=== PATIENT | male | born 1965 | race Caucasian/White ===

== ENCOUNTER 2017-03-13 07:17 | Outpatient (CLI) | payer BC ==
--- NOTE | 2017-03-13 11:58 | MRI ---
MRI LEFT KNEE WITHOUT CONTRAST: HISTORY: M25.562, left knee pain. COMPARISON: None. FINDINGS: Medial Meniscus: Mild degenerative signal within the body and posterior horn medial meniscus with a superior articular surface tear of the posterior reattachment. Lateral Meniscus: There is a complex vertical and horizontal oblique tear of the body and posterior horn lateral menisc us with tear extending to the reattachment. There is loss of normal hoop stress with lateral menisca l femoral extrusion. Extensor Mechanism: Quadriceps tendon, patella, and patellar tendon are all intact. Moderate proximal patellar tendinosis. Soft Tissues: There is a 3.6 x 2.7 x 7 cm popliteal cyst. Small joint effusion. Cartilage: Patellofemoral compartment: There is a 50% thickness cartilage fissure lateral patellar facet. Mild trochlear dysplasia. Medial Compartment: There are a few 50-75% thickness cartilage fissures of the weightbearing surface of the medial femora l condyle. Lateral compartment: Multifocal full-thickness cartilage fissures of the weight bearing surface lateral femoral condyle an d tibial plateaus with subchondral edema. There is near-complete cartilage loss of the posterior love ghtbearing surface of the lateral femoral condyle. IMPRESSION: 1. 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 There is subsequent osteophyte formation and multifocal grade IV chondromalacia. 2. Superior articular surface tear of the posterior root attachment of the medial meniscus without l oss of normal hoop stress. There is moderate degenerative signal in the body and posterior horn. 3. Large non-leaking popliteal cyst size as above. 4. Mild to moderate proximal patellar tendinosis. POS: [facility]
== END 2017-03-13 07:18 | disposition home or self-care (01) ==
LOC: SCSMRI 07:17
PROVIDERS: ATTEND Orthopaedic Surgery
DX: M25.562 Pain in left knee (principal); S83.282A Other tear of lateral meniscus, current injury, left knee, initial encounter; S83.242A Other tear of medial meniscus, current injury, left knee, initial encounter; M94.262 Chondromalacia, left knee; M71.22 Synovial cyst of popliteal space [Baker], left knee; M76.52 Patellar tendinitis, left knee; Z00.00 Encounter for general adult medical examination without abnormal findings
CPT/HCPCS: 36415; 80048; 81001; 85025

== ENCOUNTER 2018-03-11 07:07 | Outpatient (CLI) | payer BC ==
[2018-03-11 07:22] LABS: #Eosinphils 0.2 thou/uL (0.0-0.7); #Lymphocytes 1.6 thou/uL (1.20-3.40); #Monocytes 0.5 thou/uL (0.11-0.59); #Neutrophils 2.6 thou/uL (1.40-6.50); %Basophils 0.8 % (0.0-1.0); %Eosinophils 4.1 % (0.0-10.0); %Lymphocytes 32.7 % (21.0-51.0); %Monocytes 10.3 % (0.0-10.0); %Neutrophils 52.2 % (42.0-75.0); Hemoglobin 15.7 g/dL (14.0-18.0); Mean Corpuscular HGB CONC 34.8 g/dL (32.0-36.0); Mean Corpuscular Hemoglobin 31.9 pg (27.0-31.0); Mean Corpuscular Volume 91.9 fL (78.0-98.0); Mean Platelet Volume 7.5 fL (7.4-10.4); Platelet Count 148 thou/uL (130-400); RBC Distribution Width 10.9 % (11.5-14.5); White Blood Cell (WBC) Count 4.9 thou/uL (4.8-10.8)
[2018-03-11 07:28] LABS: Bilirubin Negative (Negative); Blood, Urine Negative (Negative); Clarity Slightly Cloudy (Clear); Glucose, Urine (Dipstick) Negative (Negative); Leukocyte Negative (Negative); Nitrite Negative (Negative); Protein, Urine (Dipstick) Negative (Neg-Trace); Urobilinogen 0.2 mg/dL (0.2-1.0)
[2018-03-11 07:33] LABS: Chloride 107 mmol/L (98-107); Potassium 4.4 mmol/L (3.5-5.1); Sodium 142 mmol/L (136-145); Triglycerides 78 mg/dL (Less than 150)
[2018-03-11 07:35] LABS: Bacteria/HPF None Seen HPF (None Seen); Hyaline Casts/LPF NONE SEEN LPF (0-3 Hyaline); RBC/HPF 0-3 HPF (0-3); Squamous Epithelial None Seen HPF (0-3); WBC/HPF None Seen HPF (0-3)
[2018-03-11 10:08] LABS: ALT (SGPT) 34 U/L (8-55); AST (SGOT) 23 U/L (5-34); Albumin 4.1 g/dL (3.5-5.0); Alkaline Phosphatase 79 U/L (40-150); Anion Gap 10 mmol/L (10-20); BUN (Urea Nitrogen) 18 mg/dL (8.4-25.7); Bilirubin, Total 0.9 mg/dL (0.2-1.2); Calc. Creatinine Clearance 0 mL/min (70-130); Calcium 9.3 mg/dL (7.8-10.44); Carbon Dioxide 29 mmol/L (22-29); Cholesterol 129 mg/dl (< 200 Desired); Estimated GFR-MDRD 90; Glucose 104 mg/dL (70-105); HDL Cholesterol 32 mg/dL (>60 Neg Risk); LDL Cholesterol, Calculated 81 mg/dL; Protein, Total 7.1 g/dL (6.0-8.3)
== END 2018-03-11 07:08 | disposition home or self-care (01) ==
LOC: SCSLAB 07:07
PROVIDERS: ATTEND Family Medicine
DX: Z00.00 Encounter for general adult medical examination without abnormal findings (principal); E78.5 Hyperlipidemia, unspecified
CPT/HCPCS: 36415; 80053; 80061; 81001; 85025

== ENCOUNTER 2018-03-26 07:49 | Emergency (ER) | payer BC ==
[2018-03-26] MEDS ORDERED: Famotidine/PF 20 mg/2ml Vial ONE (08:13)
[2018-03-26 08:23] LABS: #Eosinphils 0.2 thou/uL (0.0-0.7); #Lymphocytes 1.4 thou/uL (1.20-3.40); #Monocytes 0.4 thou/uL (0.11-0.59); #Neutrophils 2.3 thou/uL (1.40-6.50); %Basophils 1.1 % (0.0-1.0); %Eosinophils 4.6 % (0.0-10.0); %Lymphocytes 31.8 % (21.0-51.0); %Monocytes 8.4 % (0.0-10.0); %Neutrophils 54.1 % (42.0-75.0); Hemoglobin 16.6 g/dL (14.0-18.0); Mean Corpuscular HGB CONC 35.8 g/dL (32.0-36.0); Mean Corpuscular Volume 92.2 fL (78.0-98.0); Mean Platelet Volume 7.6 fL (7.4-10.4); Platelet Count 178 thou/uL (130-400); RBC Distribution Width 11.2 % (11.5-14.5); Red Blood Cell (RBC) Count 5.01 mill/uL (4.70-6.10); White Blood Cell (WBC) Count 4.3 thou/uL (4.8-10.8)
[2018-03-26 08:35] LABS: ALT (SGPT) 42 U/L (8-55); AST (SGOT) 33 U/L (5-34); Albumin 4.3 g/dL (3.5-5.0); Alkaline Phosphatase 78 U/L (40-150); Anion Gap 13 mmol/L (10-20); BUN (Urea Nitrogen) 22 mg/dL (8.4-25.7); Bilirubin, Total 0.8 mg/dL (0.2-1.2); Calc. Creatinine Clearance 0 mL/min (70-130); Calcium 9.5 mg/dL (7.8-10.44); Carbon Dioxide 27 mmol/L (22-29); Chloride 106 mmol/L (98-107); Estimated GFR-MDRD Greater than 90; Glucose 108 mg/dL (70-105); Potassium 3.8 mmol/L (3.5-5.1); Protein, Total 7.3 g/dL (6.0-8.3); Sodium 142 mmol/L (136-145)
--- NOTE | 2018-03-26 08:54 | RAD ---
CHEST 2 VIEWS: Date: 03/26/18 HISTORY: Chest pain. FINDINGS: No comparison. Cardiac silhouette and pulmonary vasculature are unremarkable. Mediastinum is midline. No confluent a ir space consolidation, pneumothorax, or pleural fluid. IMPRESSION: No active cardiopulmonary abnormalities are demonstrated. POS: [facility]
== END 2018-03-26 11:16 | disposition home or self-care (01) ==
LOC: SCSER 07:49
DX: R07.89 Other chest pain (principal); I10 Essential (primary) hypertension
CPT/HCPCS: 71046; 80053; 84484; 85025; 93005; 94760; 96374; S0028

== ENCOUNTER 2019-08-16 09:52 | Outpatient (CLI) | payer BC, OTHER ==
[2019-08-16 13:31] LABS: Hemoglobin 16.3 g/dL (14.0-18.0); Mean Corpuscular HGB CONC 34.6 g/dL (32.0-36.0); Mean Corpuscular Hemoglobin 33.9 pg (27.0-31.0); Mean Corpuscular Volume 98.1 fL (78.0-98.0); Mean Platelet Volume 7.6 fL (7.4-10.4); Platelet Count 175 thou/uL (130-400); White Blood Cell (WBC) Count 4.8 thou/uL (4.8-10.8)
[2019-08-16 13:35] LABS: Bacteria/HPF None Seen HPF (None Seen); Bilirubin Negative (Negative); Blood, Urine Negative (Negative); Clarity Clear (Clear); Glucose, Urine (Dipstick) Normal (Negative); Leukocyte Negative Leu/uL (Negative); Nitrite Negative (Negative); Protein, Urine (Dipstick) Negative (Neg-Trace); RBC/HPF 0-3 HPF (0-3); Squamous Epithelial None Seen HPF (0-3); Urobilinogen Normal mg/dL (Less than 2); WBC/HPF None Seen HPF (0-3)
[2019-08-16 14:53] LABS: INR-International Normal Ratio 0.9; PTT 29.6 sec (22.9-36.1); Prothrombin Time 12.3 sec (12.0-14.7)
[2019-08-16 15:39] LABS: Anion Gap 15 mmol/L (10-20); BUN (Urea Nitrogen) 18 mg/dL (8.4-25.7); Calc. Creatinine Clearance 0 mL/min (70-130); Calcium 9.2 mg/dL (7.8-10.44); Carbon Dioxide 23 mmol/L (22-29); Chloride 108 mmol/L (98-107); Estimated GFR-MDRD 89; Glucose 97 mg/dL (70-105); Potassium 4.2 mmol/L (3.5-5.1); Sodium 142 mmol/L (136-145)
[2019-08-16 20:18] LABS: SARS-CoV-2 MS2 Positive; SARS-CoV-2 N Gene Negative; SARS-CoV-2 S Gene Negative; SARS-CoV-2 orf1ab Negative
== END 2019-08-16 09:53 | disposition home or self-care (01) ==
LOC: LABBT 09:52
PROVIDERS: ATTEND Urology
DX: Z01.812 Encounter for preprocedural laboratory examination (principal); Z11.59 Encounter for screening for other viral diseases; N40.1 Benign prostatic hyperplasia with lower urinary tract symptoms; R39.11 Hesitancy of micturition; Z68.37 Body mass index [BMI] 37.0-37.9, adult; N52.01 Erectile dysfunction due to arterial insufficiency; K59.01 Slow transit constipation
CPT/HCPCS: 80048; 81001; 85027; 85610; 85730; 87086; 87635; U0003

== ENCOUNTER 2019-08-20 05:43 | Day surgery (SDC) | payer BC ==
[2019-08-12 11:35] VITALS: BMI 36.2
[2019-08-20] MEDS ORDERED: Levofloxacin 500 mg/D5W 100 ml Premix Bag ONE (06:11)
[2019-08-20] MEDS ORDERED: Fentanyl 100 MCG/2 ML VIAL ONE (06:21)
[2019-08-20] MEDS ORDERED: Midazolam HCl 2 mg/2 ml Vial ONE (06:21)
[2019-08-20] MEDS ORDERED: Famotidine/PF 20 mg/2ml Vial ONE (06:22)
[2019-08-20] MEDS ORDERED: Oxybutynin 5 MG TAB ONE (09:12)
[2019-08-20] MEDS ORDERED: Phenazopyridine HCl 97.5 MG TABLET ONE (09:12)
[2019-08-20] MEDS ORDERED: Lidocaine 1% PF 5 ML VIAL ONE (10:21)
[2019-08-20] MEDS ORDERED: PROPOFOL 200 MG/20 ML VIAL ONE (10:21)
[2019-08-20] MEDS ORDERED: Ondansetron PF 4 MG/2 ML Vial ONE (10:21)
--- NOTE | 2019-08-20 13:32 | OP ---
DATE OF PROCEDURE: 08/20/2019 SERVICE: Urology. PREOPERATIVE DIAGNOSIS: Benign prostatic hyperplasia with obstruction. POSTOPERATIVE DIAGNOSIS: Benign prostatic hyperplasia with obstruction. PROCEDURE PERFORMED: UroLift with 6 implants. INDICATIONS FOR PROCEDURE: Mr. Valenzuela is a 54-year-old white male with BPH and lower urinary symptoms. He is not satisfied with his urinary symptoms. He has elected to proceed forward with the UroLift procedure. All risks and benefits have been discussed and he has agreed to proceed forward. DESCRIPTION OF PROCEDURE: After identification of armband and verification of consent, the patient was brought to the operating room, where he underwent total intravenous anesthesia. He was then placed in dorsal lithotomy position, and prepped and draped in usual sterile fashion. After appropriate time-out, a lubricated 21-Samoan rigid cystoscope sheath with the UroLift scope was advanced through the urethra into the bladder neck. The visual obturator was switched out for the UroLift implant device. The initial implant was placed at the bladder neck on the patient's left side and withdrawn until it was in proper positioning away from the bladder neck. The scope was dropped anteriorly and then used to compress the tissues laterally. The safety was released and the trigger fired to deploy the needle. Tension was set using the delcid trigger until the tensioning had been completed. The UroLift device was then advanced forward until the white line was in the keyhole and the urethral end piece deployed using the safety release in the back. At this point, there did appear to be nice lateral compression of the bladder neck on the left side and the implant was not too close to the bladder neck. The procedure was then repeated on the right side, and again at the apex on the left and right, this resulted in nice opening of the prostatic channel; however, there was still a lateral bulge on the patient's right lateral lobe. An additional implant was placed on the right side, which decreased much of the bulge; however, there was a cat eye effect and the anterior prostate seemed to be falling into the urethral channel somewhat. I elected to place one more implant in an anterolateral approach on the patient's right side, which resulted in nice opening of the prostatic channel. Upon completion, the prostate appeared wide open. There did not appear to be any obstructing lobes. I felt this should allow for the patient to urinate more easily. The scope was withdrawn. An 18-Samoan Johnson catheter was placed in the patient's bladder, 10 mL of sterile water in the balloon. He was then taken out of positioning, awakened, taken to Day Stay for recovery in stable condition. COMPLICATIONS: None. ESTIMATED BLOOD LOSS: Minimal. RETAINED TUBES AND DRAINS: 18-Samoan Johnson catheter. IMPLANTS USED: Six. DISPOSITION: The patient will go to recovery. We will perform a void trial and then he can be discharged later. Job ID: [id number]
== END 2019-08-20 14:15 | disposition home or self-care (01) ==
LOC: SDC 05:43
PROVIDERS: ATTEND Urology
PROC: 0T7D8DZ Dilation of Urethra with Intraluminal Device, Via Natural or Artificial Opening Endoscopic (ICD-10-PCS; principal; 2019-08-20)
DX: N40.1 Benign prostatic hyperplasia with lower urinary tract symptoms (principal); N13.8 Other obstructive and reflux uropathy; E78.5 Hyperlipidemia, unspecified; Z79.899 Other long term (current) drug therapy; Z88.0 Allergy status to penicillin
CPT/HCPCS: C1889; J1956; J2001; J2250; J2405; J2704; J3010; S0028

== ENCOUNTER 2022-04-08 08:26 | Outpatient (CLI) | payer OTHER, BC | END 2022-04-08 08:27 | disposition home or self-care (01) | LOC: TBSIIMAG 08:26 | PROVIDERS: ATTEND Family Medicine | DX: M25.512 Pain in left shoulder (principal); S46.912A Strain of unspecified muscle, fascia and tendon at shoulder and upper arm level, left arm, initial encounter; S43.005A Unspecified dislocation of left shoulder joint, initial encounter; S43.432A Superior glenoid labrum lesion of left shoulder, initial encounter; M62.512 Muscle wasting and atrophy, not elsewhere classified, left shoulder ==

== ENCOUNTER 2022-05-06 08:22 | Outpatient (CLI) | payer OTHER, BC ==
[2022-05-06 09:47] LABS: #Eosinphils 0.3 10x3/uL (0.0-0.5); #Monocytes 0.5 10x3/uL (0.0-1.1); #Neutrophils 2.9 10x3/uL (1.5-8.4); %Basophils 0.6 % (0.0-2.0); %Eosinophils 5.6 % (0.0-6.0); %Lymphocytes 30.9 % (18.0-47.0); %Monocytes 9.7 % (0.0-10.0); %Neutrophils 52.8 % (40.0-75.0); Hemoglobin 14.7 g/dL (13.5-17.5); Mean Corpuscular Hemoglobin 32.9 pg (27.0-33.0); Mean Platelet Volume 10.3 fl (7.4-10.4); Platelet Count 196 10x3/uL (150-450); RBC Distribution Width 12.3 % (11.5-14.5); Red Blood Cell (RBC) Count 4.47 10x6/uL (4.32-5.72); White Blood Cell (WBC) Count 5.4 10x3/uL (3.5-10.5)
[2022-05-06 10:04] LABS: Anion Gap 13 mmol/L (10-20); BUN (Urea Nitrogen) 26 mg/dL (8.4-25.7); Calc. Creatinine Clearance 0 mL/min (70-130); Calcium 9.2 mg/dL (7.8-10.44); Carbon Dioxide 24 mmol/L (22-29); Chloride 109 mmol/L (98-107); Estimated GFR 84; Glucose 113 mg/dL (70-105); Potassium 4.3 mmol/L (3.5-5.1); Sodium 142 mmol/L (136-145)
== END 2022-05-06 08:23 | disposition home or self-care (01) ==
LOC: LABBT 08:22
PROVIDERS: ATTEND Orthopaedic Surgery
DX: Z01.818 Encounter for other preprocedural examination (principal); M75.112 Incomplete rotator cuff tear or rupture of left shoulder, not specified as traumatic
CPT/HCPCS: 80048; 85025; 93005; 93010

== ENCOUNTER 2022-05-09 05:38 | Day surgery (SDC) | payer OTHER, BC ==
[2022-05-07 10:40] VITALS: BMI 37.6
[2022-05-09] MEDS ORDERED: fentaNYL PF 100 MCG/2 ML SYRINGE ONE (06:19)
[2022-05-09] MEDS ORDERED: Midazolam HCl 2 mg/2 ml Vial ONE (06:19)
[2022-05-09] MEDS ORDERED: HYDROmorphone 0.5 MG/0.5 ML SYRINGE ONE (06:33)
[2022-05-09] MEDS ORDERED: CEFAZOLIN 2 GM VIAL ONE (06:41)
[2022-05-09] MEDS ORDERED: Sodium Chloride 0.9% 100 ML ONE (06:41)
[2022-05-09] MEDS ORDERED: Ropivacaine 0.5% HCl/PF (150 MG/30 ML VIAL) ONE (06:45)
[2022-05-09] MEDS ORDERED: Lidocaine 1% (PF) 30 ML VIAL ONE (06:45)
[2022-05-09] MEDS ORDERED: Ondansetron PF 4 MG/2 ML Vial ONE (07:05)
[2022-05-09] MEDS ORDERED: Lidocaine 1% PF 5 ML VIAL ONE (07:05)
[2022-05-09] MEDS ORDERED: PHENYLEPHRINE-NS 100 MCG/ML 10 ML SYRINGE ONE (07:05)
[2022-05-09] MEDS ORDERED: PROPOFOL 200 MG/20 ML VIAL ONE (07:05)
[2022-05-09] MEDS ORDERED: Dexamethasone 20 MG/5 ML VIAL ONE (07:05)
[2022-05-09] MEDS ORDERED: Rocuronium Bromide 10 MG/ML (10ML VIAL) ONE (07:05)
[2022-05-09] MEDS ORDERED: diphenhydrAMINE 50 MG/ML VIAL ONE (07:05)
[2022-05-09] MEDS ORDERED: Fentanyl 100 MCG/2 ML VIAL IV PRN (07:54)
[2022-05-09] MEDS ORDERED: Ondansetron PF 4 MG/2 ML Vial IVP PRN (08:00)
[2022-05-09] MEDS ORDERED: Zolpidem Tartrate 5 MG TAB PO PRN (08:00)
[2022-05-09] MEDS ORDERED: Promethazine HCl 25 MG/ML VIAL IM PRN (08:00)
[2022-05-09] MEDS ORDERED: Ropivacaine 0.2% 550 ML 550 ML NERVE BLCK SCH (08:00)
[2022-05-09] MEDS ORDERED: traMADol HCl 50 MG TAB PO PRN ×2 (08:00)
[2022-05-09] MEDS ORDERED: HYDROcodone/Acetaminophen 5/325 mg Tablet PO PRN ×2 (08:00)
[2022-05-09] MEDS ORDERED: Ketorolac Tromethamine 30 MG/ML VIAL ONE (09:43)
[2022-05-09] MEDS ORDERED: Ketorolac Tromethamine 30 MG/ML VIAL IVP SCH (12:00)
== END 2022-05-09 11:14 | disposition home or self-care (01) ==
LOC: SDC 05:38
PROVIDERS: ATTEND Orthopaedic Surgery
PROC: 0LM20ZZ Reattachment of Left Shoulder Tendon, Open Approach (ICD-10-PCS; principal; 2022-05-09)
PROC: 0LS40ZZ Reposition Left Upper Arm Tendon, Open Approach (ICD-10-PCS; principal; 2022-05-09)
DX: M75.122 Complete rotator cuff tear or rupture of left shoulder, not specified as traumatic (principal); M67.814 Other specified disorders of tendon, left shoulder; S43.492A Other sprain of left shoulder joint, initial encounter; E78.5 Hyperlipidemia, unspecified; K59.09 Other constipation; Z87.891 Personal history of nicotine dependence; Z79.899 Other long term (current) drug therapy; Z88.0 Allergy status to penicillin
CPT/HCPCS: A4306; C1713; J1100; J1170; J1200; J1885; J2001; J2250; J2405; J2704; J2795; J3490

== ENCOUNTER 2023-09-03 09:53 | Outpatient (CLI) | payer BC | END 2023-09-03 09:54 | disposition home or self-care (01) | LOC: SCSMRI 09:53 | PROVIDERS: ATTEND Orthopaedic Surgery | DX: M47.22 Other spondylosis with radiculopathy, cervical region (principal); M48.02 Spinal stenosis, cervical region; M47.813 Spondylosis without myelopathy or radiculopathy, cervicothoracic region; M48.03 Spinal stenosis, cervicothoracic region | CPT/HCPCS: 72141 ==

== ENCOUNTER 2024-12-17 09:00 | Inpatient (IN) | payer BC ==
[2024-12-17 09:03] VITALS: BMI 37.6
[2024-12-24] MEDS ORDERED: Thrombin 5000 UNITS/5 ML VIAL ONE (06:12)
[2024-12-24] MEDS ORDERED: Lidocaine 1% PF 5 ML VIAL ONE (06:13)
[2024-12-24] MEDS ORDERED: fentaNYL PF 100 MCG/2 ML SYRINGE ONE ×2 (06:13→08:57)
[2024-12-24] MEDS ORDERED: Rocuronium Bromide 10 MG/ML (10ML VIAL) ONE (06:13)
[2024-12-24] MEDS ORDERED: PROPOFOL 20 ML ONE (06:13)
[2024-12-24] MEDS ORDERED: CEFAZOLIN 2 GM VIAL ONE ×2 (06:37→10:44)
[2024-12-24] MEDS ORDERED: PHENYLEPHRINE-NS 100 MCG/ML 10 ML SYRINGE ONE (07:44)
[2024-12-24] MEDS ORDERED: Glycopyrrolate 0.2 MG/ML 5 ML SYRINGE ONE (08:03)
[2024-12-24] MEDS ORDERED: Ondansetron PF 4 MG/2 ML Vial ONE (08:14)
[2024-12-24] MEDS ORDERED: SUGAMMADEX SODIUM 200 MG/2 ML VIAL ONE (08:26)
[2024-12-24] MEDS ORDERED: HYDROcodone/Acetaminophen 5/325 mg Tablet ONE (10:38)
== END 2024-12-24 13:25 | disposition home or self-care (01) | DRG 473 ==
LOC: SURG A 12-24 05:31
PROVIDERS: ADMIT Neurological Surgery; ATTEND Neurological Surgery
PROC: 0RG20A0 Fusion of 2 or more Cervical Vertebral Joints with Interbody Fusion Device, Anterior Approach, Anterior Column, Open Approach (ICD-10-PCS; principal; 2024-12-24)
PROC: 01N10ZZ Release Cervical Nerve, Open Approach (ICD-10-PCS; 2024-12-24)
PROC: 3E03329 Introduction of Other Anti-infective into Peripheral Vein, Percutaneous Approach (ICD-10-PCS; 2024-12-24)
DX: M48.02 Spinal stenosis, cervical region (principal); Z79.899 Other long term (current) drug therapy; Z82.49 Family history of ischemic heart disease and other diseases of the circulatory system; Z88.0 Allergy status to penicillin; Z88.8 Allergy status to other drugs, medicaments and biological substances; Z79.84 Long term (current) use of oral hypoglycemic drugs
CPT/HCPCS: C1713; C1889; J1100; J2704